=== PATIENT | male | born 1985 | race African-American/Black ===

== ENCOUNTER 2021-06-07 13:54 | Emergency (ER) | payer OTHER, BC ==
[~2021-06-07] VITALS: Ht 185.4 cm; Wt 106.1 kg
[2021-06-07] MEDS ORDERED: FLEXERIL PO (15:07)
[2021-06-07 15:09] VITALS: BP 141/94
== END 2021-06-07 20:29 | disposition home or self-care (01) ==
LOC: ER 13:54
DX: S16.1XXA Strain of muscle, fascia and tendon at neck level, initial encounter (principal); S29.012A Strain of muscle and tendon of back wall of thorax, initial encounter; V49.9XXA Car occupant (driver) (passenger) injured in unspecified traffic accident, initial encounter; Y93.89 Activity, other specified; Y92.89 Other specified places as the place of occurrence of the external cause; Y99.8 Other external cause status